=== PATIENT | male | born 1945 | race Caucasian/White ===

== ENCOUNTER 2017-06-23 20:59 | Emergency (ER) | payer MEDICARE, OTHER ==
[~2017-06-23] VITALS: Ht 172.7 cm; Wt 94.8 kg
[~2017-06-23 20:59] MED LIST: BAYE325T3 PO; CIPR0.3S RIGHT EAR; FLUD.1 PO; HYDRO10 PO; IBUP400 PO; LEVO50IN PO; PROT40TA PO
[2017-06-23 21:03] VITALS: BP 131/86; PULSE 78; RESP 20; TEMP 98; O2SAT 98
[2017-06-23 21:20] VITALS: BP 127/77; PULSE 78; RESP 18; O2SAT 95
[2017-06-23] MEDS ORDERED: SODIUM CHLOR 0.9% 1000 ML INJ 1,000 ML IV ONE (21:45)
[2017-06-23 21:55] LABS: AUTOMATED NEUTROPHIL # 5.3 TH/MM3 (1.8-7.7); BASOPHIL # 0.1 TH/MM3 (0-0.2); EOSINOPHIL # 0.5 TH/MM3 (0-0.4); HEMATOCRIT 47.5 % (39.0-51.0); HEMOGLOBIN 16.2 GM/DL (13.0-17.0); LYMPH % 36.1 % (9.0-44.0); LYMPHOCYTE # 3.6 TH/MM3 (1.0-4.8); MEAN CELL VOLUME 95.2 FL (80.0-100.0); MEAN CORPUSCULAR HEMOGLOBIN 32.5 PG (27.0-34.0); MEAN CORPUSCULAR HGB CONC 34.1 % (32.0-36.0); MEAN PLATELET VOLUME 7.8 FL (7.0-11.0); MONO % 5.6 % (0.0-8.0); MONOCYTE # 0.6 TH/MM3 (0-0.9); NEUT % 52.3 % (16.0-70.0); PLATELET COUNT 299 TH/MM3 (150-450); RED BLOOD COUNT 4.99 MIL/MM3 (4.50-5.90); RED CELL DISTRIBUTION WIDTH 14.5 % (11.6-17.2); WHITE BLOOD COUNT 10.1 TH/MM3 (4.0-11.0)
[2017-06-23 22:06] LABS: CALCIUM 8.7 MG/DL (8.5-10.1)
[2017-06-23 22:07] LABS: BICARBONATE 26.7 MEQ/L (21.0-32.0); MAGNESIUM 2.2 MG/DL (1.5-2.5)
[2017-06-23 22:10] LABS: CREATININE 1.2 MG/DL (0.60-1.30)
[2017-06-23 22:20] VITALS: BP 114/74; PULSE 64; RESP 16; O2SAT 98
[2017-06-23] MEDS ORDERED: FLUD.1 PO (22:31)
[2017-06-23] MEDS ORDERED: HYDR20TA PO (22:31)
[2017-06-23] MEDS ORDERED: LEVO200T4 PO (22:31)
[2017-06-23] MEDS ORDERED: OMEP20CA2 PO (22:31)
[2017-06-23] MEDS ORDERED: SODIUM CHLORID 0.9% 500 ML INJ 500 ML IV ONE (22:45)
[2017-06-23 23:02] LABS: BILIRUBIN, URINE NEG (NEG); BLOOD, URINE NEG (NEG); GLUCOSE,URINE NEG (NEG); KETONE, URINE NEG (NEG); NITRITE,URINE NEG (NEG); URINE COLOR YELLOW (YELLW/STRAW); URINE LEUKOCYTE ESTERASE NEG (NEG)
[2017-06-23 23:14] LABS: SQUAMOUS EPITHELIAL CELL URINE 0-5 /hpf (0-5)
--- NOTE | 2017-06-23 23:39 | RADRPT ---
EXAM DATE/TIME: 06/23/2017 23:14 [place] COMPARISON: No previous studies available for comparison. INDICATIONS : Vomiting, constipation and urinary retention. ORAL CONTRAST: No oral contrast ingested. RADIATION DOSE: 20.24 CTDIvol (mGy) MEDICAL HISTORY : Hypercholesterolemia. Myocardial infarction. Hypothyroidism. SURGICAL HISTORY : Thyroidectomy. ENCOUNTER: Initial ACUITY: 1 day PAIN SCALE: 0/10 LOCATION: abdomen TECHNIQUE: Volumetric scanning of the abdomen and pelvis was performed. Using automated exposure control and ad justment of the mA and/or kV according to patient size, radiation dose was kept as low as reasonably achievable to obtain optimal diagnostic quality images. DICOM format image data is available electro nically for review and comparison. FINDINGS: LOWER LUNGS: The visualized lower lungs are clear. LIVER: Homogeneous density without lesion. There is no dilation of the biliary tree. No calcified gallston es. SPLEEN: Normal size without lesion. PANCREAS: Within normal limits. KIDNEYS: Normal in size and shape. There is no mass, stone, or hydronephrosis. ADRENAL GLANDS: Within normal limits. VASCULAR: There is no aortic aneurysm. BOWEL/MESENTERY: The stomach, small bowel, and colon demonstrate no acute abnormality. There is no free intraperitone al air or fluid. ABDOMINAL WALL: Within normal limits. RETROPERITONEUM: There is no lymphadenopathy. BLADDER: No wall thickening or mass. REPRODUCTIVE: Within normal limits. INGUINAL: There is no lymphadenopathy or hernia. MUSCULOSKELETAL: Within normal limits for patient age. CONCLUSION: 1. No acute findings. Specifically no renal calculi or obstructive uropathy. No focal bladder abnorma lities. Small hiatal hernia. Small hemangioma of right L1 vertebral body. Bernardino Topete MD on June 23, 2017 at 23:30 Board Certified Radiologist. This report was verified electronically.
[2017-06-23 23:48] VITALS: BP 104/70; PULSE 64; RESP 18; O2SAT 96
--- NOTE | 2017-06-23 23:55 | PD ---
HPI Chief Complaint: Complaint Time Seen by Provider: 21:38 Travel History International Travel<30 days: No Contact w/Intl Traveler<30days: No Traveled to known affect area: No History of Present Illness HPI 71-year-old male presents to the emergency department complaint of decreased urine output urinary urgency and mild suprapubic discomfort without fever chills no dysuria frequency or hematuria. Patient has history of adrenal insufficiency and did not take his medication today but took his evening dose just prior to arrival to the emergency department. Patient states he has been drinking fluids. Patient denies other concerns or complaints. PFSH Past Medical History Anxiety: Yes Cancer: No Cardiovascular Problems: Yes High Cholesterol: Yes Congestive Heart Failure: No Diabetes: No Diminished Hearing: No Endocrine: Yes (ADDISONS & HYPOTHYROID) Gastrointestinal Disorders: Yes Genitourinary: No Hypertension: No Implanted Vascular Access Dvce: No Musculoskeletal: Yes Neurologic: No Psychiatric: Yes Reproductive: No Respiratory: Yes (SOMETIMES) Myocardial Infarction: Yes (2012) Influenza Vaccination: No Past Surgical History Surgical History: No Previous Surgery Endocrine Surgery: Yes (thyroidectomy) Other Surgery: No Social History Alcohol Use: No Tobacco Use: No (quit) Substance Use: No Allergies-Medications (Allergen,Severity, Reaction): Coded Allergies: metronidazole (Unverified Allergy, Severe, Dyspepsia, 06/23/17) Sulfa (Sulfonamide Antibiotics) (Unverified Allergy, Unknown, 06/23/17) PT DOES NOT REMEMBER REACTION Reported Meds & Prescriptions Reported Meds & Active Scripts Active Reported Omeprazole 20 Mg Cap 20 Mg PO DIRECTED Levothyroxine (Levothyroxine Sodium) 200 Mcg Tab 200 Mcg PO DAILY Fludrocortisone (Fludrocortisone Acetate) 0.1 Mg Tab 0.1 Mg PO DAILY Hydrocortisone 20 Mg Tab 60 Mg PO BID Take with food to decrease GI upset Review of Systems Except as stated in HPI: all other systems reviewed are Neg General / Constitutional: No: Fever, Chills HENT: No: Congestion Cardiovascular: No: Chest Pain or Discomfort Respiratory: No: Shortness of Breath Gastrointestinal: No: Nausea, Vomiting Genitourinary: No: Dysuria Musculoskeletal: No: Myalgias, Arthralgias Skin: No Rash Neurologic: No: Weakness Psychiatric: No: Anxiety Hematologic/Lymphatic: No: Lymph Node Enlargement Physical Exam Narrative GENERAL: Well-developed well-nourished male no acute distress no respiratory distress SKIN: Warm and dry. HEAD: Normocephalic. EYES: No scleral icterus. No injection or drainage. NECK: Supple, trachea midline. No JVD or lymphadenopathy. CARDIOVASCULAR: Regular rate and rhythm without murmurs, gallops, or rubs. RESPIRATORY: Breath sounds equal bilaterally. No accessory muscle use. GASTROINTESTINAL: Abdomen soft, non-tender, nondistended. MUSCULOSKELETAL: No cyanosis, or edema. BACK: Nontender without obvious deformity. No CVA tenderness. Data Data Last Documented VS Vital Signs Date Time Temp Pulse Resp B/P (MAP) Pulse Ox O2 Delivery O2 Flow Rate FiO2 06/24/17 00:16 62 18 114/74 (87) 96 06/23/17 23:48 Room Air 06/23/17 21:03 98.0 Orders Orders Complete Blood Count With Diff (06/23/17 21:38) Basic Metabolic Panel (Bmp) (06/23/17 21:38) Magnesium (Mg) (06/23/17 21:38) Urinalysis - C+S If Indicated (06/23/17 21:38) Sodium Chlor 0.9% 1000 Ml Inj (Ns 1000 M (06/23/17 21:45) Ct Abd/Pel W/O Iv Contrast (06/23/17 ) Sodium Chlorid 0.9% 500 Ml Inj (Ns 500 M (06/23/17 22:45) Ed Discharge Order (06/23/17 23:50) Labs Laboratory Tests Test 06/23/17 21:45 06/23/17 22:51 White Blood Count 10.1 TH/MM3 Red Blood Count 4.99 MIL/MM3 Hemoglobin 16.2 GM/DL Hematocrit 47.5 % Mean Corpuscular Volume 95.2 FL Mean Corpuscular Hemoglobin 32.5 PG Mean Corpuscular Hemoglobin Concent 34.1 % Red Cell Distribution Width 14.5 % Platelet Count 299 TH/MM3 Mean Platelet Volume 7.8 FL Neutrophils (%) (Auto) 52.3 % Lymphocytes (%) (Auto) 36.1 % Monocytes (%) (Auto) 5.6 % Eosinophils (%) (Auto) 5.0 % Basophils (%) (Auto) 1.0 % Neutrophils # (Auto) 5.3 TH/MM3 Lymphocytes # (Auto) 3.6 TH/MM3 Monocytes # (Auto) 0.6 TH/MM3 Eosinophils # (Auto) 0.5 TH/MM3 Basophils # (Auto) 0.1 TH/MM3 CBC Comment DIFF FINAL Differential Comment Blood Urea Nitrogen 11 MG/DL Creatinine 1.20 MG/DL Random Glucose 122 MG/DL Calcium Level 8.7 MG/DL Magnesium Level 2.2 MG/DL Sodium Level 128 MEQ/L Potassium Level 4.0 MEQ/L Chloride Level 93 MEQ/L Carbon Dioxide Level 26.7 MEQ/L Anion Gap 8 MEQ/L Estimat Glomerular Filtration Rate 60 ML/MIN Urine Color YELLOW Urine Turbidity CLEAR Urine pH 6.0 Urine Specific [place] 1.010 Urine Protein TRACE mg/dL Urine Glucose (UA) NEG mg/dL Urine Ketones NEG mg/dL Urine Occult Blood NEG Urine Nitrite NEG Urine Bilirubin NEG Urine Urobilinogen 0.2 MG/DL Urine Leukocyte Esterase NEG Urine Squamous Epithelial Cells 0-5 /hpf Microscopic Urinalysis Comment CULT NOT INDICATED MDM Medical Decision Making Medical Screen Exam Complete: Yes Emergency Medical Condition: Yes Medical Record Reviewed: Yes Interpretation(s) CBC & BMP Diagram 06/23/17 21:45 Calcium Level 8.7, Magnesium Level 2.2 Vital Signs Date Time Temp Pulse Resp B/P (MAP) Pulse Ox O2 Delivery O2 Flow Rate FiO2 06/23/17 23:48 64 18 104/70 (81) 96 Room Air 06/23/17 22:20 64 16 114/74 (87) 98 Room Air 06/23/17 21:20 18 06/23/17 21:20 78 18 127/77 (94) 95 Room Air 06/23/17 21:03 98.0 78 20 131/86 (101) 98 UA: wnl Last Impressions Abdomen/Pelvis CT 06/23/17 0000 Signed Impressions: Service Date/Time: Friday, June 23, 2017 23:14 - CONCLUSION: 1. No acute findings. Specifically no renal calculi or obstructive uropathy. No focal bladder abnormalities. Small hiatal hernia. Small hemangioma of right L1 vertebral body. Bernardino Topete MD Differential Diagnosis Electrolyte disturbance, adrenal insufficiency, urinary retention, UTI, dehydration, renal insufficiency Narrative Course Patient presents because of concern for urinary retention or possible electrolyte disturbance is very concerned about his potassium level may be. Patient reports that he did not take his hydrocortisone today as it was prescribed and just took his floor cortisone prior to arrival to the emergency department. Patient denies other concerns or complaints. Patient identified to have hyponatremia of 128 other lab values are found to be in normal range patient has produced urine twice in the emergency department here and sent for resulting Urinalysis normal Patient again able to reduce urine output in the emergency department at this point time patient is stable for outpatient management but recommend a recheck in 1 day to have his serum sodium level checked and did not close follow-up with his managing provider on Sunday. Diagnosis Primary Impression: Hyponatremia Additional Impression: H/O Geoffrey's disease Referrals: Primary Care Physician 2 days Call office on Sunday to schedule follow-up Patient Instructions: General Instructions Additional Instructions: Take your medications as prescribed specifically hydrocortisone and fludrocortisone Follow up with your primary care provider call office on Sunday Recheck 1 day in the emergency department for repeat sodium level Return to the emergency department for any concerns or change in condition Disposition: 01 DISCHARGE HOME Condition: Stable Socorro Blum MD June 23, 2017 23:54
[2017-06-24 00:16] VITALS: BP 114/74
== END 2017-06-24 00:34 | disposition home or self-care (01) ==
LOC: PHED 20:59
DX: E87.1 Hypo-osmolality and hyponatremia (principal); E27.1 Primary adrenocortical insufficiency; E78.00 Pure hypercholesterolemia, unspecified; I25.2 Old myocardial infarction
CPT/HCPCS: 74176; 80048; 81001; 83735; 85025; 96360; 96361; 99284; J7030; J7040